=== PATIENT | male | born 1970 | race Caucasian/White ===

== ENCOUNTER 2018-06-10 14:48 | Inpatient (IN) | payer SELFPAY ==
[~2018-06-10] VITALS: Ht 172.7 cm; Wt 91.2 kg
[2018-06-10] MEDS: NITROGLYCERIN 0.4MG TABLET SL SL PRN ×2 (16:14→23:55)
[2018-06-10 16:24] LABS: HEMATOCRIT. 40.6 % (42.0-52.0); HEMOGLOBIN. 14.1 g/dL (14.0-18.0); MEAN CORPUSCULAR HEMOGLOBIN 30.2 pg (28.0-32.0); MEAN CORPUSCULAR VOLUME 86.9 fL (80.0-94.0); MEAN PLATELET VOLUME 9.8 fl (7.4-10.4); PLATELET 91 x1000/uL (130-400); RED BLOOD CELL COUNT 4.67 mill/uL (4.7-6.1); RED CELL DISTRIBUTION WIDTH 15.3 % (11.6-14.6)
[2018-06-10 16:37] LABS: CHLORIDE 99 mEq/L (98-107)
[2018-06-10 16:43] LABS: ETHANOL BLOOD 243 mg/dL
[2018-06-10 17:27] LABS: D-DIMER 0.53 mg/L FEU (<0.50); PARTIAL THROMBOPLASTIN TIME 33.9 sec (23.4-31.0)
[2018-06-10 17:34] LABS: PLATELET ESTIMATE DECREASED
[2018-06-10 17:35] LABS: INR > 10.0
[2018-06-10 17:36] LABS: *AMPHETAMINES SCREEN URINE NEGATIVE (NEGATIVE); *BARBITURATES SCREEN URINE NEGATIVE (NEGATIVE); *BENZODIAZEPINES SCREEN URINE NEGATIVE (NEGATIVE)
[2018-06-10 17:37] LABS: PROTHROMBIN TIME > 100.0 sec (9.1-11.1)
[2018-06-10 17:37] LABS: *COCAINE SCREEN URINE NEGATIVE (NEGATIVE); CANNABINOID URINE SCREEN NEGATIVE (NEGATIVE); METHADONE URINE SCREEN NEGATIVE (NEGATIVE); OPIATES URINE SCREEN NEGATIVE (NEGATIVE); PHENCYCLIDINE URINE SCREEN NEGATIVE (NEGATIVE)
[2018-06-10 18:42] LABS: HEPATITIS B SURFACE ANTIGEN NEGATIVE
[2018-06-10] MEDS ORDERED: SODIUM CHLORIDE 0.9% 1,000 ML IV ONE (19:04)
[2018-06-10] MEDS ORDERED: MORPHINE SULFATE 4 MG/ML CPJ (NOT FOR IM USE) IV STA (19:04)
[2018-06-10] MEDS ORDERED: ONDANSETRON HCL 4MG/2ML INJ IV STA (19:04)
[2018-06-10 19:12] LABS: HEPATITIS A AB IGM NEGATIVE (NEGATIVE)
[2018-06-10] MEDS ORDERED: IOHEXOL-350 100 ML BOTTLE ONE (19:14)
[2018-06-10] MEDS ORDERED: IPRATROPIUM/ALBUTEROL 0.5-3(2.5)MG/3ML NEB INH PRN (21:45)
[2018-06-10] MEDS ORDERED: DOCUSATE SODIUM 100MG CAPSULE PO PRN (21:45)
[2018-06-10] MEDS ORDERED: LACTULOSE 20G/30ML UDC PO PRN (21:45)
[2018-06-10] MEDS ORDERED: ONDANSETRON HCL 4MG/2ML INJ IV PRN (21:45)
[2018-06-11] VITALS (7 sets, daily range): BP systolic 149–178; BP diastolic 79–108
[2018-06-11] MEDS ORDERED: TRAMADOL 50MG TABLET PO PRN (04:00)
[2018-06-11] MEDS: FUROSEMIDE 40MG TABLET PO SCH (05:46)
[2018-06-11] MEDS: CHLORDIAZEPOXIDE 25MG CAPSULE PO SCH (05:46)
[2018-06-11] MEDS: SPIRONOLACTONE 50MG TABLET PO SCH (05:46)
[2018-06-11] MEDS: OMEPRAZOLE 20MG CAPSULE EXTENDED RELEASE PO SCH (05:46)
[2018-06-11 07:28] LABS: HEMATOCRIT. 38.4 % (42.0-52.0); HEMOGLOBIN. 13.4 g/dL (14.0-18.0); MEAN CORPUSCULAR HEMOGLOBIN 31.2 pg (28.0-32.0); MEAN CORPUSCULAR VOLUME 89.3 fL (80.0-94.0); MEAN PLATELET VOLUME 10.4 fl (7.4-10.4); PLATELET 97 x1000/uL (130-400); RED CELL DISTRIBUTION WIDTH 15.3 % (11.6-14.6)
[2018-06-11 07:33] LABS: PARTIAL THROMBOPLASTIN TIME 34.8 sec (23.4-31.0)
[2018-06-11 08:34] LABS: LDL CHOLESTEROL 177 mg/dL (5-100)
[2018-06-11 08:35] LABS: HDL CHOLESTEROL 16 mg/dL (40-59)
[2018-06-11 08:37] LABS: T4 FREE 0.96 ng/dL (0.76-1.46)
[2018-06-11] MEDS ORDERED: CHLORDIAZEPOXIDE 25MG CAPSULE PO SCH (09:00)
[2018-06-11] MEDS ORDERED: SPIRONOLACTONE 50MG TABLET PO SCH (09:00)
[2018-06-11] MEDS ORDERED: FUROSEMIDE 40MG TABLET PO SCH (09:00)
[2018-06-11] MEDS ORDERED: PNEUMOCOCCAL 23-VAL P-SAC VAC 0.5 ML IM ONE (10:00)
[2018-06-11] MEDS ORDERED: PHYTONADIONE 10MG/ML AMP SUBCUT NR (10:00)
[2018-06-11] MEDS ORDERED: INFLUENZA VIRUS VACCINE(AFLURIA) 0.5ML SYR IM ONE (10:00)
[2018-06-11] MEDS: THIAMINE HCL 100MG TABLET PO SCH (10:01)
[2018-06-11] MEDS: FOLIC ACID 1MG TABLET PO SCH (10:01)
[2018-06-11] MEDS: MULTIVITAMINS,THER W-MINERALS TABLET PO SCH (10:01)
[2018-06-11 10:10] LABS: CHLORIDE 100 mEq/L (98-107)
[2018-06-11 10:12] LABS: PHOSPHORUS 2.5 mg/dL (2.5-4.9)
[2018-06-11 11:03] LABS: PLATELET ESTIMATE DECREASED
[2018-06-11 11:35] LABS: PROTHROMBIN TIME 13.3 sec (9.1-11.1)
[2018-06-11 11:36] LABS: INR 1.3
[2018-06-11] MEDS ORDERED: LORAZEPAM 2MG/ML CPJ IV SCH (12:30)
[2018-06-11] MEDS ORDERED: CLONIDINE 0.1MG TABLET PO PRN (12:30)
[2018-06-11] MEDS: AMLODIPINE 10MG TABLET PO SCH (12:53)
[2018-06-11 13:14] LABS: INR 1.2; PARTIAL THROMBOPLASTIN TIME 28.8 sec (23.4-31.0)
[2018-06-11] MEDS: PROPRANOLOL HCL 10MG TABLET PO SCH (21:08)
[2018-06-12] VITALS: BP 142/84
[2018-06-12 04:00] VITALS: BP 147/92
[2018-06-12] MEDS: OMEPRAZOLE 20MG CAPSULE EXTENDED RELEASE PO SCH (06:15)
[2018-06-12 07:08] LABS: HEMATOCRIT. 36.1 % (42.0-52.0); HEMOGLOBIN. 12.4 g/dL (14.0-18.0); MEAN CORPUSCULAR HEMOGLOBIN 30.1 pg (28.0-32.0); MEAN CORPUSCULAR VOLUME 87.4 fL (80.0-94.0); MEAN PLATELET VOLUME 11.3 fl (7.4-10.4); PLATELET 57 x1000/uL (130-400); RED BLOOD CELL COUNT 4.13 mill/uL (4.7-6.1); RED CELL DISTRIBUTION WIDTH 14.8 % (11.6-14.6)
[2018-06-12 07:12] LABS: CHLORIDE 99 mEq/L (98-107)
[2018-06-12 08:00] VITALS: BP 146/91
[2018-06-12] MEDS: FUROSEMIDE 40MG TABLET PO SCH (09:00)
[2018-06-12] MEDS: SPIRONOLACTONE 50MG TABLET PO SCH (09:07)
[2018-06-12] MEDS: FOLIC ACID 1MG TABLET PO SCH (09:07)
[2018-06-12] MEDS: CHLORDIAZEPOXIDE 25MG CAPSULE PO SCH (09:09)
[2018-06-12] MEDS: THIAMINE HCL 100MG TABLET PO SCH (09:09)
[2018-06-12] MEDS: MULTIVITAMINS,THER W-MINERALS TABLET PO SCH (09:11)
[2018-06-12] MEDS: AMLODIPINE 10MG TABLET PO SCH (09:11)
[2018-06-12] MEDS: PROPRANOLOL HCL 10MG TABLET PO SCH (09:12)
[2018-06-12 10:26] LABS: PLATELET ESTIMATE DECREASED
[2018-06-12] MEDS ORDERED: POTASSIUM CHLORIDE 20MEQ TABLET SR PO NR (10:30)
[2018-06-12 11:36] VITALS: BP 146/91
== END 2018-06-12 12:10 | disposition home or self-care (01) | DRG 280 ==
LOC: EDBD 14:48 → ER 14:48 → 5WST 18:29 → EDBEDREQ 18:35 → EDBEDREQTM 18:35 → ENRESERV 23:27
PROVIDERS: ADMIT Family Medicine Adult Medicine; ATTEND Family Medicine Adult Medicine
DX: K70.40 Alcoholic hepatic failure without coma (principal); K70.10 Alcoholic hepatitis without ascites; D69.59 Other secondary thrombocytopenia; D68.9 Coagulation defect, unspecified; E44.1 Mild protein-calorie malnutrition; E87.1 Hypo-osmolality and hyponatremia; K70.30 Alcoholic cirrhosis of liver without ascites; D64.9 Anemia, unspecified; E78.5 Hyperlipidemia, unspecified; F10.20 Alcohol dependence, uncomplicated; K76.0 Fatty (change of) liver, not elsewhere classified; E66.9 Obesity, unspecified; E78.1 Pure hyperglyceridemia; I11.9 Hypertensive heart disease without heart failure; K75.89 Other specified inflammatory liver diseases; R07.89 Other chest pain; G90.8 Other disorders of autonomic nervous system; Z68.30 Body mass index [BMI] 30.0-30.9, adult
CPT/HCPCS: 36415; 71045; 71275; 74177; 80048; 80061; 80076; 80305; 80320; 82140; 83735; 83880; 84100; 84439; 84443; 84481; 84484; 85379; 86705; 86709; 86803; 86850; 86900; 87340; 90686; 93005; 93306; 93970; 96374; 96375; 99285; J2060; J2270; J2405; J3430; J7030; J7050; Q9967; G0480

== ENCOUNTER 2018-06-26 12:58 | Emergency (ER) | payer SELFPAY ==
[~2018-06-26] VITALS: Ht 170.2 cm; Wt 77.0 kg
[2018-06-26] MEDS ORDERED: SODIUM CHLORIDE 0.9% 1,000 ML IV ONE (13:35)
[2018-06-26 14:18] LABS: BASOPHILS % 1.1 % (0.0-2.0); EOSINOPHILS % 0.4 % (0.0-5.0); HEMATOCRIT. 35.7 % (42.0-52.0); HEMOGLOBIN. 12.1 g/dL (14.0-18.0); LYMPHOCYTES % 21.4 % (20.0-50.0); MEAN CORPUSCULAR HEMOGLOBIN 29.9 pg (28.0-32.0); MEAN CORPUSCULAR VOLUME 88.3 fL (80.0-94.0); MEAN PLATELET VOLUME 8.9 fl (7.4-10.4); NEUTROPHILS % 69.1 % (40.0-76.0); PLATELET 408 x1000/uL (130-400); RED BLOOD CELL COUNT 4.04 mill/uL (4.7-6.1); RED CELL DISTRIBUTION WIDTH 15.1 % (11.6-14.6)
[2018-06-26 14:19] LABS: CHLORIDE 106 mEq/L (98-107)
[2018-06-26 14:24] LABS: PARTIAL THROMBOPLASTIN TIME 27.1 sec (23.4-31.0); PROTHROMBIN TIME 10.1 sec (9.1-11.1)
[2018-06-26 14:26] LABS: *AMPHETAMINES SCREEN URINE NEGATIVE (NEGATIVE); *BARBITURATES SCREEN URINE NEGATIVE (NEGATIVE); *BENZODIAZEPINES SCREEN URINE NEGATIVE (NEGATIVE); *COCAINE SCREEN URINE NEGATIVE (NEGATIVE); METHADONE URINE SCREEN NEGATIVE (NEGATIVE); OPIATES URINE SCREEN NEGATIVE (NEGATIVE)
[2018-06-26 14:27] LABS: CANNABINOID URINE SCREEN NEGATIVE (NEGATIVE); PHENCYCLIDINE URINE SCREEN NEGATIVE (NEGATIVE)
[2018-06-26] MEDS ORDERED: MECLIZINE 25MG TABLET PO ONE (14:45)
[2018-06-26] MEDS ORDERED: ONDANSETRON 4MG ODT PO ONE (14:45)
[2018-06-26 18:00] VITALS: BP 150/87
== END 2018-06-26 18:00 | disposition home or self-care (01) ==
LOC: ER 12:58
DX: R42 Dizziness and giddiness (principal); R11.0 Nausea
CPT/HCPCS: 36415; 70450; 71045; 80053; 80305; 83880; 84484; 85025; 85610; 85730; 93005; 96360; 96361; 99284; J7030; J8597; Q0162